=== PATIENT | female | born 1940 | race Caucasian/White ===

== ENCOUNTER 2020-06-06 20:16 | Emergency (ER) | payer MEDICARE, SELFPAY ==
[2020-06-06] VITALS (7 sets, daily range): BP systolic 78–118; BP diastolic 49–75; PULSE 91–118; RESP 24–36; TEMP 36.1–36.6; O2SAT 91–96; BMI 28.4
--- NOTE | 2020-06-06 20:22 | CT_ITS ---
We are attempting to reach an attending provider to discuss findings. An addendum with communication details will be sent when the communication is complete. STUDY: CT ABDOMEN AND PELVIS WITHOUT CONTRAST REASON FOR EXAM: Female, 79 years old. Pain RADIATION DOSAGE (If Supplied By Facility): CTDIvol = ( 7.97 ) mGy, DLP = ( 462.03 ) mGycm TECHNIQUE: Transaxial images were obtained from the dome of the diaphragm to the symphysis pubis without oral contrast, and without intravenous contrast. Sagittal and coronal images were reconstructed. Individualized dose optimization techniques were used for this CT. COMPARISON: None. FINDINGS: Small bilateral effusions. Consolidation at the left base versus atelectasis. The visualized portions of the heart are within normal limits. Massive hiatal hernia containing stomach, mesentery and prominent ascitic fluid. There is a diffuse contour abnormality of the liver consistent with cirrhotic changes. Diffuse ascites. Mild gallbladder wall thickening may be reactive. Normal spleen. There is diffuse atrophy of the pancreas. Normal bilateral adrenal glands. Normal right kidney. Normal left kidney. Normal visualized stomach. Prominent loops of small bowel are nonspecific. There is diverticulosis, with thickening of the colon wall, and mild pericolonic inflammation changes at the descending colon which may be consistent with acute diverticulitis. The appendix is visualized and appears normal. There is diffuse atherosclerotic calcification of the abdominal aorta, without a demonstrated aneurysm. Normal inferior vena cava. Normal retroperitoneum. Normal urinary bladder. There is absence of the uterus consistent with a prior hysterectomy. There is a left-sided inguinal hernia containing adipose tissue. There are diffuse degenerative changes of the visualized lumbar spine. CT/Abdomen/Pelvis without Cont IMPRESSION: Masses hiatal hernia with a prominent air-fluid level and somewhat abnormal configuration of the stomach. Gastric volvulus should be considered clinically. Diffuse ascites. There are areas of stranding around the descending colon which may represent diverticulitis in the appropriate clinical setting. Prominent loops of small bowel are poorly characterized, may indicate ileus. Electronically Signed: Colby Sampson MD at 21:32 EDT Tel , Service support ,
--- NOTE | 2020-06-06 20:22 | EKG12_ITS ---
Test Reason : DYSRYTHMIA Blood Pressure : / mmHG Vent. Rate : 114 BPM Atrial Rate : 114 BPM P-R Int : 158 ms QRS Dur : 082 ms QT Int : 310 ms P-R-T Axes : 046 -67 073 degrees QTc Int : 427 ms Sinus tachycardia Left axis deviation Incomplete right bundle branch block Inferior infarct , age undetermined , cannot be excluded Abnormal ECG Confirmed by TAMI MURRAY, EDDIE ([id number]), editor map SANFORD SUTTON ([id number]) on 06/08/2020 11:35:17 AM Referred By: BIRGIT Confirmed By:EDDIE GARRETT MD
[2020-06-06 20:36] LABS: Absolute Lymphocyte Count 1.08 X10^3/uL (0.83-4.51); Absolute Neutrophil Count 5.5 X10^3/uL (2.0-7.7); Basophil# 0.03 X10^3/uL; Basophil% 0.4 % (0-1); Eosinophil# 0.02 X10^3/uL; Eosinophils% 0.3 % (0-5); Hematocrit 48.9 % (37-47); Hemoglobin 14.5 g/dL (12.0-15.0); Lymphocyte # 1.08 X10^3/ul (0.83-4.51); Lymphocyte % 15.4 % (19-41); Mean Corp Hgb Conc 29.7 g/dL (32-36); Mean Corpuscular Hgb 28.4 pg (27.0-32.0); Mean Corpuscular Volume 95.7 fL (81-99); Monocyte# 0.35 X10^3/uL; NRBC Flagged by Analyzer 0 % (0-5); Neutrophil # 5.48 X10^3/uL (2.7-7.7); Neutrophil % 78.3 % (47-70); Platelet Count 311 K/mm3 (150-450); RBC Distribution Width CV 12.9 % (11.6-14.6); RBC Distribution Width SD 45.4 fl (35.1-43.9); Red Blood Count 5.11 M/mm3 (4.2-5.4)
[2020-06-06] MEDS: Ondansetron 4 MG/2 ML Vial IV (20:52)
[2020-06-06] MEDS: 0.9% Normal Saline 1,000 ML 125 ML IV (20:52)
[2020-06-06 20:55] LABS: ALB/GLOB Ratio 0.9 RATIO (0.9-2.4); AST(SGOT) 17 U/L (15-37); Alanine Aminotransfer ALT/SGPT 19 U/L (13-56); Albumin, Serum 3.8 g/dL (3.2-5.0); Alkaline Phosphatase 88 U/L (45-117); Anion Gap 14 (5-15); BUN 25 mg/dL (7-18); Calcium,Total 11.5 mg/dL (8.5-10.1); Chloride 103 mmol/L (98-107); Creatinine, Serum 2.09 mg/dL (0.55-1.02); EST Glomerular Filtration Rate 24 mL/min (>60); Est Glom Filt Rate - Afr Amer 30 mL/min (>60); Globulin 4.3 g/dL (2.2-4.2); Glucose 333 mg/dL (74-106); Lipase 34 U/L (73-393); Potassium 3.5 mmol/L (3.5-5.1); Protein, Total 8.1 g/dL (6.4-8.2); Sodium Level 135 mmol/L (136-145)
[2020-06-06 20:59] LABS: Bacteria 0 SEEN /hpf (None Seen); Mucous, Urine 0 SEEN /hpf (<or=2+)
[2020-06-06 21:00] LABS: Color, Urine Yellow (Yellow); Glucose, Dipstick Normal (Normal); Ketone-Dipstick 5 mg/dl (Negative); Leukocyte Esterase-Dipstick Negative /ul (Negative); Nitrite-Dipstick Negative (Negative); Occult Blood-Urine 10 /ul (Negative); Protein-Dipstick 100 mg/dl (Negative); Urine Bilirubin Dipstick Negative (Negative); Urine Clarity Clear (Clear); Urine Urobilinogen 1 mg/dl (Normal)
[2020-06-06 21:07] LABS: Red Blood Cells-Urine 0-5 SEEN /hpf (0-5); Squamous Epithelial Cells - UA 0-5 SEEN /hpf (5-10); White Blood Cells 0 SEEN /hpf (0-5)
--- NOTE | 2020-06-06 21:07 | ED.VIS.GEN ---
History of Present Illness Chief Complaint: Nausea/Vomiting Informant: Patient, Family Onset: Yesterday Maximum Severity: Mild Narrative: Patient presents with daughter the patient has a known history of COPD prior hysterectomy in the distant past lives alone at home was a very poor historian the daughter reports the patient has been vomiting since yesterday she took her some soup and some Gatorade had persistent vomiting and she was brought in today. The patient states she did not eat anything could have made her ill she is had no fever no cough no real abdominal pain there is no known obvious gross abnormality with the stool she has no known history of GI ailments, The daughter reports the patient is a very vague historian and she generally says no to everything Past Medical History - Allergies and Home Meds Allergies/Adverse Reactions: Allergies No Known Allergies Allergy (Verified 06/06/20 20:30) Primary Care Physician: Toni Cyr MD [Primary Care Provider] - Past Medical History: - Smoking Status: Former smoker Review of Systems ROS: - COPD General: Denies: Chills, Fever, Sweats Eyes: Denies: Visual changes - bilaterally, Diplopia ENT: Denies: Rhinorrhea, Sore throat Cardiovascular: Denies: Chest pain, Palpitations Respiratory: Denies: Dyspnea, Cough, Dyspnea on exertion Gastrointestinal: Reports: Vomiting. Denies: Abdominal pain, Nausea, Diarrhea, Melena, Hematochezia Genitourinary: Denies: Dysuria, Hematuria, Frequency Musculoskeletal: Denies: Back pain, Extremity Pain Skin: Denies: Rash, Wounds Neurological: Denies: Headache, Weakness, Numbness Physical Exam Vital Signs/Narrative: Vital Signs Temp Pulse Resp BP Pulse Ox 06/06/20 20:25 115 H 26 H 92 06/06/20 20:18 97.8 F 118 H 24 H 100/75 96 General: Well nourished, Well developed, No Acute Distress Head: Normocephalic, Atraumatic Eyes: Perrl, EOMI ENT: Moist mucous membranes, No rhinorrhea Neck: Supple, Nontender Cardiovascular: Regular rate, Regular rhythm, No murmurs Respiratory: No distress, CTA bilaterally, Chest nontender Abdomen: Soft, Nondistended, Normal bowel sounds, Tender, Guarding, - - Diffuse nonspecific tenderness with some guarding Back: Nontender, Normal Inspection Extremities: Nontender, No edema Skin: Normal color, No rash Neurological: Alert, Oriented x3, Cranial nerves II-XII grossly intact, Normal Strength, Normal Sensation Psychological: Normal affect, Normal Mood Diagnostic/Tx/Re-eval - Medical Decision Making Her vital signs unremarkable she has no specific abdominal pain she is awake alert moving all 4 extremities she says she is not having any abdominal pain but persistent being nauseated, ED screening evaluation including CT EKG shows rate of about 114 nonspecific left bundle present on previous no acute injury pressure is currently 80/60 will begin IV fluids IV antibiotics Dinh catheter The patient's screening ED evaluation was generally unremarkable she was reports, CT per radiology showed a number of abnormalities including one a massive hiatal hernia potential gastric volvulus, ascites, and possible diverticulitis, surgery reviewed the CT and would be concerned for possibility of perforation Receiving IV fluids, we spoke with the surgical on-call team here at this facility discussed the above with them they are unable to manage this condition and they would recommend she be transferred to a tertiary care center, I spoke with the daughter at [phone], explained the above to the patient daughter explained the concept of volvulus perforation life-threatening condition need to transfer she agrees at this time we will start with [facility], who did not have capacity were close, given her condition the hypotension potential perforation we spoke with [facility] for helicopter transport and they accepted her in transfer to the ED for surgical management IV fluids per sepsis protocol IV antibiotics are being infused her pressure has improved to about 92/60 fluids per protocol are still infusing Transfer to [facility] for definitive surgical evaluation Final impression hypotension sepsis possible gastric volvulus with perforation Care time 30 to 45 minutes ED Disposition - Plan for ED Patient: Diagnosis: Gastric volvulus, sepsis Referrals: Toni Cyr MD [Primary Care Provider] -
[2020-06-06] MEDS: 0.9% Normal Saline 1,000 ML 999 ML IV ×3 (21:46→22:59)
--- NOTE | 2020-06-06 22:09 | ED.RN ---
aware of sepsis alert.
--- NOTE | 2020-06-06 22:13 | RAD_ITS ---
STUDY: X-RAY CHEST REASON FOR EXAM: Female, 79 years old. vomiting TECHNIQUE: Single AP portable view of the chest. COMPARISON: None. FINDINGS: Trace bilateral pleural effusions are present. There are cystic emphysematous changes in both lungs. No visualized consolidation. A massive hiatal hernia is present obscuring portions of the bilateral lung bases. Normal size heart. Normal mediastinum and gregory. Normal visualized pulmonary arteries. Normal visualized aortic arch and descending thoracic aorta. Normal visualized thoracic spine. Normal visualized ribs, clavicles, and shoulders. RAD/Chest 1 View (Portable) IMPRESSION: 1. Trace bilateral pleural effusions are present. There are cystic emphysematous changes in both lungs. No visualized consolidation. A massive hiatal hernia is present obscuring portions of the bilateral lung bases. Electronically Signed: Celestine Cr MD at 22:32 EDT , Service support ,
[2020-06-06] MEDS: metroNIDAZOLE 500 MG/100 ML BAG 100 MG IV (22:17)
[2020-06-06 22:57] LABS: Lactic Acid 7.5 mmol/L (0.4-1.9)
[2020-06-06 23:03] LABS: International Normalized Ratio 1.2; Prothrombin Time (Protime)PT. 14.5 SECONDS (11.7-14.9)
[2020-06-06 23:48] LABS: Reflex Lactate? N
== END 2020-06-06 23:00 | disposition short-term general hospital (02) ==
LOC: ED 22:44
PROVIDERS: Emergency Provider Emergency Medicine; PCP Family Medicine
DX: K31.89 Other diseases of stomach and duodenum (principal); A41.9 Sepsis, unspecified organism; K44.9 Diaphragmatic hernia without obstruction or gangrene; R18.8 Other ascites; J44.9 Chronic obstructive pulmonary disease, unspecified; Z87.891 Personal history of nicotine dependence
CPT/HCPCS: 51702; 71045; 74176; 80053; 81001; 83605; 83690; 85025; 85610; 87040; 87086; 93005; 96365; 96368; 96374; 99285; J7030; A4216; J2405